=== PATIENT | male | born 1975 | race Caucasian/White ===

== ENCOUNTER 2018-08-01 08:49 | Emergency (ER) | payer OTHER ==
[~2018-08-01] VITALS: Ht 175.3 cm; Wt 83.5 kg
[2018-08-01] MEDS ORDERED: IV NORMAL SALINE 1,000ML 1,000 ML IV SCH (09:40)
--- NOTE | 2018-08-01 09:50 | PHYS DOC ---
Past History Past Medical History: GERD Past Surgical History: Other Smoking: Non-smoker Alcohol Use: Rarely Drug Use: None Adult General Chief Complaint Chief Complaint: FLU SYMPTOM HPI HPI Patient is a 43 year old male who presents with complaining of flulike symptom. Patient complaining of cough and congestion for the last 2 weeks with productive yellow sputum and generalized body ache that getting worse for the last 3 days with fever up to 101, headache, generalized nausea and she'll and weakness. Patient denies sick contact, smoking, history of pneumonia. Patient states he took [id number] cough medication without improvement of his condition. Review of Systems Review of Systems Constitutional: Reports fever Eyes: Denies change in visual acuity, redness, or eye pain [] HENT: Reports nasal congestion and sore throat Respiratory: Reports productive cough and shortness of breath Cardiovascular: No additional information not addressed in HPI [] GI: Denies abdominal pain, vomiting, bloody stools or diarrhea, reports nausea [] : Denies dysuria or hematuria [] Musculoskeletal: Denies back pain or joint pain [] Integument: Denies rash or skin lesions [] Neurologic: Reports headache, denies focal weakness or sensory changes [] Endocrine: Denies polyuria or polydipsia [] All other systems were reviewed and found to be within normal limits, except as documented in this note. Allergies Allergies Allergies Coded Allergies Type Severity Reaction Last Updated Verified No Known Drug Allergies 01/12/15 No Physical Exam Physical Exam Constitutional: Well developed, well nourished, mild acute distress, non-toxic appearance. [] HENT: Normocephalic, atraumatic, bilateral external ears normal, oropharynx moist, pharyngeal erythema, no oral exudates, nose normal. [] Eyes: PERRLA, EOMI, conjunctiva normal, no discharge. [] Neck: Normal range of motion, no tenderness, supple, no stridor. [] Cardiovascular:Heart rate regular rhythm, no murmur [] Lungs & Thorax: Bilateral breath sounds clear to auscultation [] Abdomen: Bowel sounds normal, soft, no tenderness, no masses, no pulsatile masses. [] Skin: Warm, dry, no erythema, no rash. [] Back: No tenderness, no CVA tenderness. [] Extremities: No tenderness, no cyanosis, no clubbing, ROM intact, no edema. [] Neurologic: Alert and oriented X 3, normal motor function, normal sensory function, no focal deficits noted. [] Psychologic: Affect normal, judgement normal, mood normal. [] Current Patient Data Vital Signs Vital Signs Date Time Temp Pulse Resp B/P (MAP) Pulse Ox O2 Delivery O2 Flow Rate FiO2 08/01/18 09:01 100.7 94 Room Air EKG EKG [] Radiology/Procedures Radiology/[place] [address] IMAGING REPORT Signed PATIENT: MIGUEL ROAJS ACCOUNT: [id number] : 1975 LOCATION: ER AGE: 43 SEX: M EXAM STATUS: REG ER ORD. PHYSICIAN: RASHEEDA SHELL MD REASON: cough and shortness of breath PROCEDURE: CHEST PA & LATERAL PROCEDURE: CHEST PA LATERAL CLINICAL INDICATION: Cough and shortness of breath COMPARISON: None FINDINGS: No pneumothorax identified. Cardiac and mediastinal contours unremarkable. No pulmonary consolidation or acute airspace disease. No acute osseous abnormalities identified. IMPRESSION: No pulmonary consolidation or acute airspace disease. Electronically signed by: Roberto Carlos Velasquez DO (08/01/2018 10:21 AM) [facility] DICTATED AND SIGNED BY: ROBERTO CARLOS VELASQUEZ DO DATE: 08/01/18 1021 CC: RASHEEDA SHELL MD; PCP,POPPY ~ Course & Med Decision Making Course & Med Decision Making Pertinent Labs and Imaging studies reviewed. (See chart for details) Evolution of patient in ER showed 43-year-old patient with complaining of cough and congestion for 2 weeks that getting worse for the last 3 days with starting fever. Patient had negative flu test and chest x-ray. Labs showed mild cytosis. Patient stated with IV fluid, Toradol, Solu-Medrol, DuoNeb, Rocephin and morphine and felt better. Plan discharge patient home with diagnose of bronchitis. Dragon Disclaimer Dragon Disclaimer This electronic medical record was generated, in whole or in part, using a voice recognition dictation system. Departure Departure: Impression: Primary Impression: Acute bronchitis Additional Impressions: Headache Myalgia Disposition: HOME, SELF-CARE (@1200) Condition: IMPROVED Referrals: PCP,NO (PCP) Patient Instructions: Acute Bronchitis, General Headache Without Cause Additional Instructions: Drink plenty of liquids Follow-up with your primary care physician in 3-5 days Return to ER if not getting better Scripts Azithromycin (ZITHROMAX) 250 Mg Tablet 1 PKG PO UD for infection, #1 PKG Prov: RASHEEDA SHELL MD 08/01/18 Hydrocodone/Chlorphen P-Stirex (Tussionex Pennkinetic Susp) 115 Ml Kandy.er.12h 5 ML PO BID for cough and congestion, #120 ML Prov: RASHEEDA SHELL MD 08/01/18 Albuterol Sulfate (PROAIR HFA INHALER) 8.5 Gm Hfa.aer.ad 2 PUFF INH PRN Q6HRS PRN for SHORTNESS OF BREATH, #1 INHALER 0 Refills Prov: RASHEEDA SHELL MD 08/01/18 Methylprednisolone (MEDROL) 4 Mg Tab.ds.pk 1 PKG PO UD for inflammation, #1 PKG Prov: RASHEEDA SHELL MD 08/01/18 Problem Qualifiers RASHEEDA SHELL MD Aug 01, 2018 09:50
[2018-08-01 09:59] LABS: INFLUENZA A PATIENT NEGATIVE (NEGATIVE); INFLUENZA B PATIENT NEGATIVE (NEGATIVE)
[2018-08-01] MEDS ORDERED: IPRATRPIUM/ALBUTEROL 0.5/2.5MG 3 ML NEBU. NEB ONE (10:00)
[2018-08-01] MEDS ORDERED: methylPREDNISolone SOD SUCC PF 125 MG/2 ML VIAL. IV ONE (10:00)
[2018-08-01] MEDS ORDERED: ONDANSETRON PF 4 MG/2 ML VIAL. IV ONE (10:00)
[2018-08-01 10:03] LABS: BASO % 0 % (0-3); EOS # 0.4 x10^3/uL (0.0-0.7); EOS % 3 % (0-3); HEMATOCRIT 49.7 % (39.0-53.0); HEMOGLOBIN 16.7 g/dL (13.0-17.5); LYMPH % 15 % (24-48); MEAN CORPUSCULAR HEMOGLOBIN 30 pg (25-35); MEAN CORPUSCULAR HGB CONC 34 g/dL (31-37); MEAN CORPUSCULAR VOLUME 89 fL (79-100); MONO # 1.4 x10^3/uL (0.0-1.1); MONO % 11 % (0-9); NEUT # 9.5 x10^3uL (1.8-7.7); NEUT % 71 % (31-73); PLATELET COUNT 248 x10^3/uL (140-400); RED CELL DISTRIBUTION WIDTH 13.4 % (11.5-14.5); WHITE BLOOD COUNT 13.3 x10^3/uL (4.0-11.0)
[2018-08-01 10:18] LABS: ALBUMIN 3.8 g/dL (3.4-5.0); ALBUMIN/GLOBULIN RATIO 0.9 (1.0-1.7); CALCIUM 9.1 mg/dL (8.5-10.1); GFR 80.8; TOTAL BILIRUBIN 0.6 mg/dL (0.2-1.0); TOTAL PROTEIN 8.2 g/dL (6.4-8.2)
--- NOTE | 2018-08-01 10:26 | RAD ---
PROCEDURE: CHEST PA LATERAL CLINICAL INDICATION: Cough and shortness of breath COMPARISON: None FINDINGS: No pneumothorax identified. Cardiac and mediastinal contours unremarkable. No pulmonary consolidation or acute airspace disease. No acute osseous abnormalities identified. IMPRESSION: No pulmonary consolidation or acute airspace disease. Electronically signed by: Roberto Carlos Monte DO (08/01/2018 10:21 AM) [facility]
[2018-08-01 10:44] LABS: % BANDS 5 % (0-9); % LYMPHS 20 % (24-48); % MONOS 9 % (0-10); % SEGS 65 % (35-66)
[2018-08-01 10:45] LABS: % BASOS 0 % (0-3); % EOS 1 % (0-5); PLT ESTIMATE ADEQUATE (ADEQUATE); TOXIC VACUOLATION MOD
[2018-08-01] MEDS ORDERED: MORPHINE SULFATE 4 MG/ML DISP.SYRIN. IV ONE (11:30)
[2018-08-01] MEDS ORDERED: HYDR115S2 PO (11:46)
[2018-08-01] MEDS ORDERED: AZIT250T PO (11:46)
[2018-08-01] MEDS ORDERED: ALBU2.5V8 INH (11:46)
[2018-08-01] MEDS ORDERED: METH4TAB2 PO (11:46)
[2018-08-01] MEDS ORDERED: IV NORMAL SALINE 50ML 50 ML ONE (11:47)
[2018-08-01] MEDS ORDERED: cefTRIAXone SODIUM 1 GM VIAL ONE (11:48)
[2018-08-01 12:15] VITALS: BP 121/87
== END 2018-08-01 12:35 | disposition home or self-care (01) ==
LOC: ER 08:49
DX: J40 Bronchitis, not specified as acute or chronic (principal); R51 Headache; M79.10 Myalgia, unspecified site
CPT/HCPCS: 36415; 71046; 80053; 83605; 85007; 85025; 87804; 94640; 96365; 96375; 99284; J0696; J2270; J2405; J2930; J7620; 96361; J7030

== ENCOUNTER 2019-01-14 06:27 | Emergency (ER) | payer OTHER ==
[~2019-01-14] VITALS: Ht 175.3 cm; Wt 83.9 kg
[~2019-01-14 06:27] MED LIST: ALBU2.5V8 INH; AZIT250T PO; HYDR115S2 PO; METH4TAB2 PO
--- NOTE | 2019-01-14 06:58 | PHYS DOC ---
Past History Past Medical History: GERD Past Surgical History: Other Smoking: Non-smoker Alcohol Use: None Drug Use: None Adult General Chief Complaint Chief Complaint: MECHANICAL FALL HPI HPI 43-year-old male presents with left rib pain. 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 He landed with his on his left ribs against the prisoner as they hit the ground. He had immediate discomfort in his left lower ribs in the anterior. This happened around 11:30 last night. Throughout the night, the patient has had discomfort especially with deep breathing. He wants to make sure he does not have any fractured ribs. He denies any other injuries or complaints. He does not have shortness of breath, just pain with breathing. Review of Systems Review of Systems Constitutional: Denies fever or chills [] Eyes: Denies change in visual acuity, redness, or eye pain [] HENT: Denies nasal congestion or sore throat [] Respiratory: Denies cough or shortness of breath [] Cardiovascular: No additional information not addressed in HPI [] GI: Denies abdominal pain, nausea, vomiting, bloody stools or diarrhea [] : Denies dysuria or hematuria [] Musculoskeletal: Left anterior lower rib pain[] Integument: Denies rash or skin lesions [] Neurologic: Denies headache, focal weakness or sensory changes [] Endocrine: Denies polyuria or polydipsia [] All other systems were reviewed and found to be within normal limits, except as documented in this note. Allergies Allergies Allergies Coded Allergies Type Severity Reaction Last Updated Verified No Known Drug Allergies 01/12/15 No Physical Exam Physical Exam Constitutional: Well developed, well nourished, no acute distress, non-toxic appearance. [] HENT: Normocephalic, atraumatic, bilateral external ears normal, oropharynx moist, no oral exudates, nose normal. [] Eyes: PERRLA, EOMI, conjunctiva normal, no discharge. [] Neck: Normal range of motion, no tenderness, supple, no stridor. [] Cardiovascular:Heart rate regular rhythm, no murmur [] Lungs & Thorax: Bilateral breath sounds clear to auscultation. Tenderness over her left, lower, anterior ribs. No ecchymosis or obvious deformity. [] Abdomen: Bowel sounds normal, soft, no tenderness, no masses, no pulsatile masses. [] Skin: Warm, dry, no erythema, no rash. [] Back: No tenderness, no CVA tenderness. [] Extremities: No tenderness, no cyanosis, no clubbing, ROM intact, no edema. [] Neurologic: Alert and oriented X 3, normal motor function, normal sensory function, no focal deficits noted. [] Psychologic: Affect normal, judgement normal, mood normal. [] Current Patient Data Vital Signs Vital Signs Date Time Temp Pulse Resp B/P (MAP) Pulse Ox O2 Delivery O2 Flow Rate FiO2 01/14/19 06:28 98.0 69 18 97 Room Air EKG EKG [] Radiology/Procedures Radiology/Procedures [] Impressions: Exam:Left ribs with PA chest Date: 01/14/2019 6:45 AM Comparison: No prior Indication: Fall, left rib pain Findings/ Impression: The heart is not enlarged. Mediastinal and hilar contours are normal. No focal parenchymal airspace opacity. No pleural effusion or pneumothorax. AP, Oblique and Spot images of the left ribs are negative for acute displaced rib fracture. Negative focal pleural elevation. Symmetrical intercostal spacing. It is of note that an acute non-displaced rib fracture can be in-apparent on initial post-trauma imaging. Electronically signed by: Kobe Perez MD (01/14/2019 7:44 AM) [facility] DICTATED AND SIGNED BY: KOBE PEREZ MD DATE: 01/14/19 0744 CC: ROSALEE ART DO; PCP,NO ~ Course & Med Decision Making Course & Med Decision Making Pertinent Labs and Imaging studies reviewed. (See chart for details) The patient does not have a rib fracture. This is likely just a contusion. If he continues to have significant symptoms, he could repeat the x-rays in 1-2 weeks. The patient is stable for discharge at this time. We'll give him a short course of [place] 5/325 especially to help him sleep with the pain. [] Dragon Disclaimer Dragon Disclaimer This electronic medical record was generated, in whole or in part, using a voice recognition dictation system. Departure Departure: Impression: Primary Impression: Contusion of rib on left side Disposition: 01 HOME, SELF-CARE Condition: STABLE Referrals: PCP,NO (PCP) Patient Instructions: Rib Contusion Scripts Hydrocodone Bit/Acetaminophen ([place] 5-325 TABLET) 1 Each Tablet 1 TAB PO PRN Q6HRS PRN for PAIN, #10 TAB 0 Refills Prov: ROSALEE ART DO 01/14/19 Problem Qualifiers Primary Impression: Contusion of rib on left side Encounter type: initial encounter Qualified Codes: S20.212A - Contusion of left front wall of thorax, initial encounter ROSALEE ART DO Jan 14, 2019 06:58
--- NOTE | 2019-01-14 07:47 | RAD ---
Exam:Left ribs with PA chest Date: 01/14/2019 6:45 AM Comparison: No prior Indication: Fall, left rib pain Findings/ Impression: The heart is not enlarged. Mediastinal and hilar contours are normal. No focal parenchymal airspace opacity. No pleural effusion or pneumothorax. AP, Oblique and Spot images of the left ribs are negative for acute displaced rib fracture. Negative focal pleural elevation. Symmetrical intercostal spacing. It is of note that an acute non-displaced rib fracture can be in-apparent on initial post-trauma imaging. Electronically signed by: Kobe Perez MD (01/14/2019 7:44 AM) [facility]
[2019-01-14] MEDS ORDERED: HYDR-3165 PO (07:52)
[2019-01-14 07:55] VITALS: BP 148/80
== END 2019-01-14 07:55 | disposition home or self-care (01) ==
LOC: ER 06:27
DX: S20.212A Contusion of left front wall of thorax, initial encounter (principal); K21.9 Gastro-esophageal reflux disease without esophagitis; W18.39XA Other fall on same level, initial encounter; Y93.72 Activity, wrestling; Y92.89 Other specified places as the place of occurrence of the external cause; Y99.0 Civilian activity done for income or pay
CPT/HCPCS: 71101; 99284

== ENCOUNTER 2019-01-18 21:29 | Emergency (ER) | payer OTHER ==
[~2019-01-18] VITALS: Ht 175.3 cm; Wt 83.9 kg
[~2019-01-18 21:29] MED LIST changes: +HYDR-3165 PO
--- NOTE | 2019-01-18 21:59 | EKG ---
[address] [address] Test Date: 2019-01-18 Test Time: 21:49:33 Pat Name: MIGUEL ROJAS Department: Room: Gender: M Traveling Buyer: : 1975 Requested By: MISSAEL CHRISTENSEN Order Number: [id number] Reading MD: Measurements Intervals [place] Rate: 71 P: 31 AK: 168 QRS: -17 QRSD: 96 T: 19 QT: 392 QTc: 431 Interpretive Statements SINUS RHYTHM LEFTWARD AXIS S1,S2,S3 PATTERN NO SPECIFIC ECG ABNORMALITIES RI6.01 No previous ECG available for comparison
[2019-01-18] MEDS ORDERED: KETOROLAC 15 MG/ML VIAL. IV ONE (22:00)
[2019-01-18] MEDS ORDERED: MORPHINE SULFATE 4 MG/ML DISP.SYRIN. IV/SQ PRN (22:00)
--- NOTE | 2019-01-18 22:01 | PHYS DOC ---
Past History Past Medical History: No Pertinent History, GERD Past Surgical History: Other Smoking: Non-smoker Alcohol Use: None Drug Use: None Adult General Chief Complaint Chief Complaint: RIB PAIN HPI HPI Patient is a 43-year-old male presents complaining of left-sided chest discomfort. 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 Increased pain this evening. [place] like something shifted or popped. Increased pain with deep breaths. No lower extremity swelling. No fracture was noted previously. No coughing or fever. No relief with home medicines. Patient is out of his narcotic pain medicines of which he was prescribed 10. He is scheduled for follow-up with Worker's Compensation next week.[] Review of Systems Review of Systems Constitutional: Denies fever or chills [] Eyes: Denies change in visual acuity, redness, or eye pain [] HENT: Denies nasal congestion or sore throat [] Respiratory: Denies cough or shortness of breath [] Cardiovascular: No additional information not addressed in HPI [] GI: Denies abdominal pain, nausea, vomiting, bloody stools or diarrhea [] : Denies dysuria or hematuria [] Musculoskeletal: Denies back pain or joint pain [] Integument: Denies rash or skin lesions [] Neurologic: Denies headache, focal weakness or sensory changes [] Endocrine: Denies polyuria or polydipsia [] All other systems were reviewed and found to be within normal limits, except as documented in this note. Current Medications Current Medications Current Medications Medications (Trade) Dose Ordered Sig/Gonzalo Start Time Stop Time Status Last Admin Dose Admin Ketorolac Tromethamine (Toradol 15mg Vial) 15 mg 1X ONCE 01/18/19 22:00 01/18/19 22:01 UNV Morphine Sulfate (Morphine 4mg Syringe) 4 mg PRN Q15MIN PRN 01/18/19 22:00 01/19/19 21:59 UNV Allergies Allergies Allergies Coded Allergies Type Severity Reaction Last Updated Verified No Known Drug Allergies 01/12/15 No Physical Exam Physical Exam Constitutional: Well developed, well nourished, mild to moderate discomfort, non-toxic appearance. [] HENT: Normocephalic, atraumatic, bilateral external ears normal, oropharynx moist, no oral exudates, nose normal. [] Eyes: PERRLA, EOMI, conjunctiva normal, no discharge. [] Neck: Normal range of motion, no tenderness, supple, no stridor. [] Cardiovascular:Heart rate regular rhythm, no murmur [] Lungs & Thorax: Bilateral breath sounds clear to auscultation, tenderness to palpation left sixth rib region. There is no crepitus. No bruising. No subcutaneous emphysema. No flail segment is noted. [] Abdomen: Bowel sounds normal, soft, no tenderness, no masses, no pulsatile masses. [] Skin: Warm, dry, no erythema, no rash. [] Back: No tenderness, no CVA tenderness. [] Extremities: No tenderness, no cyanosis, no clubbing, ROM intact, no edema. [] Neurologic: Alert and oriented X 3, normal motor function, normal sensory function, no focal deficits noted. [] Psychologic: Affect normal, judgement normal, mood normal. [] Current Patient Data Vital Signs Vital Signs Date Time Temp Pulse Resp B/P (MAP) Pulse Ox O2 Delivery O2 Flow Rate FiO2 01/18/19 21:41 97.4 86 20 97 Room Air EKG EKG EKG shows a sinus rhythm at 71 bpm, left axis, QTC 431 ms, no ST elevations. Interpreted by me at 2149[] Radiology/Procedures Radiology/Procedures PROCEDURE: CHEST PA & LATERAL Exam: Chest 2 views INDICATION: Severe left-sided chest pain TECHNIQUE: Frontal and lateral views of the chest Comparisons: None FINDINGS: The cardiomediastinal silhouette and pulmonary vessels are within normal limits. The lung and pleural spaces are clear. IMPRESSION: No acute cardiopulmonary process.[] Course & Med Decision Making Course & Med Decision Making Pertinent Labs and Imaging studies reviewed. (See chart for details) ED course: Patient arrived, was placed in bed, and tolerated exam well. He was transported to and from radiology with any complications. He received good pain management with the medicine given. After the return of lab and imaging studies, these were discussed with the patient and family who voiced understanding. All questions were answered. He was discharged in improved condition. Medical decision making: There is no evidence of pneumonia, pneumothorax, pulmonary embolism, dissecting thoracic aneurysm, hemothorax, nor esophageal rupture. No evidence of this being an acute coronary syndrome. Patient's heart score is 1 for age.[] Dragon Disclaimer Dragon Disclaimer This electronic medical record was generated, in whole or in part, using a voice recognition dictation system. Departure Departure: Impression: Primary Impression: Rib injury Disposition: 01 HOME, SELF-CARE Condition: IMPROVED Referrals: PCPPOPPY (PCP) Patient Instructions: Rib Contusion Additional Instructions: Follow-up with your Worker's Compensation physician in 2 days. Take medication as prescribed. Return to the ER if worsening discomfort, difficulty breathing, or any other concerns. Scripts Tramadol Hcl (TRAMADOL HCL) 50 Mg Tablet 50 MG PO PRN Q6HRS PRN for PAIN, #20 TAB Prov: MISSAEL CHRISTENSEN DO 01/18/19 Meloxicam (MELOXICAM) 7.5 Mg Tablet 7.5 MG PO DAILY for PAIN, #20 TAB Prov: MISSAEL CHRISTENSEN DO 01/18/19 MISSAEL CHRISTENSEN DO Jan 18, 2019 22:01
--- NOTE | 2019-01-18 22:18 | RAD ---
Exam: Chest 2 views INDICATION: Severe left-sided chest pain TECHNIQUE: Frontal and lateral views of the chest Comparisons: None FINDINGS: The cardiomediastinal silhouette and pulmonary vessels are within normal limits. The lung and pleural spaces are clear. IMPRESSION: No acute cardiopulmonary process. Electronically signed by: Foreign Roberson MD (01/18/2019 10:15 PM) [facility]
[2019-01-18 22:44] LABS: BASO # 0.1 x10^3/uL (0.0-0.2); BASO % 1 % (0-3); EOS # 0.1 x10^3/uL (0.0-0.7); EOS % 2 % (0-3); HEMATOCRIT 46.3 % (39.0-53.0); HEMOGLOBIN 15.9 g/dL (13.0-17.5); LYMPH # 3.3 x10^3/uL (1.0-4.8); LYMPH % 44 % (24-48); MEAN CORPUSCULAR HEMOGLOBIN 30 pg (25-35); MEAN CORPUSCULAR HGB CONC 34 g/dL (31-37); MEAN CORPUSCULAR VOLUME 88 fL (79-100); MONO # 0.6 x10^3/uL (0.0-1.1); MONO % 8 % (0-9); NEUT # 3.4 x10^3uL (1.8-7.7); NEUT % 45 % (31-73); PLATELET COUNT 298 x10^3/uL (140-400); RED BLOOD COUNT 5.26 x10^6/uL (4.30-5.70); WHITE BLOOD COUNT 7.6 x10^3/uL (4.0-11.0)
[2019-01-18 23:06] LABS: ALBUMIN 3.7 g/dL (3.4-5.0); ALBUMIN/GLOBULIN RATIO 1.1 (1.0-1.7); CALCIUM 9.2 mg/dL (8.5-10.1); CREATININE 1.1 mg/dL (0.7-1.3); GFR 72.4; POTASSIUM 3.7 mmol/L (3.5-5.1); TOTAL BILIRUBIN 0.4 mg/dL (0.2-1.0); TOTAL PROTEIN 7.2 g/dL (6.4-8.2)
[2019-01-18] MEDS ORDERED: TRAM50TA PO (23:19)
[2019-01-18] MEDS ORDERED: MELO7.5T29 PO (23:19)
[2019-01-18 23:22] VITALS: BP 118/71
== END 2019-01-18 23:31 | disposition home or self-care (01) ==
LOC: ER 21:29
DX: S29.9XXA Unspecified injury of thorax, initial encounter (principal); K21.9 Gastro-esophageal reflux disease without esophagitis; X50.9XXA Other and unspecified overexertion or strenuous movements or postures, initial encounter; Y93.89 Activity, other specified; Y92.89 Other specified places as the place of occurrence of the external cause; Y99.0 Civilian activity done for income or pay
CPT/HCPCS: 36415; 71046; 80053; 83690; 83880; 84484; 85025; 85379; 93005; 96374; 96375; 99285; J1885; J2270

== ENCOUNTER → 2020-05-10 | Outpatient (CLI) | payer OTHER ==
[~2020-05-10] MED LIST changes: +MELO7.5T29 PO; +TRAM50TA PO
== END ==
LOC: LAB 09:38
DX: R50.9 Fever, unspecified (principal); Z20.828 Contact with and (suspected) exposure to other viral communicable diseases
CPT/HCPCS: U0003

== ENCOUNTER 2021-11-16 17:22 | Emergency (ER) | payer SELFPAY ==
[~2021-11-16] VITALS: Ht 175.3 cm; Wt 81.2 kg
--- NOTE | 2021-11-16 17:50 | PHYS DOC ---
Past History Past Medical History: No Pertinent History, GERD (KYLEE ACOSTA APRN) Past Surgical History: Other (KYLEE ACOSTA APRN) Smoking: Non-smoker Alcohol Use: None Drug Use: None (KYLEE ACOSTA APRN) Adult General Chief Complaint Chief Complaint: ANIMAL BITE HPI HPI Patient is a 38-year-old male patient who presents with multiple dog bites. He reports his 2 dogs at home were fighting each other, he had tried to break them up, when they had bit at him. He reports labs occurred just prior to coming to the emergency room. He reports he does not know when his last tetanus shot was, reports this is most likely been more than 5 years ago. He states his dogs are up-to-date on their rabies vaccinations. He states they did not clench down and bite, he reports everything was just scrapes from their teeth (KYLEE ACOSTA APRN) Review of Systems Review of Systems Constitutional: Denies fever or chills [] Musculoskeletal: Denies back pain or joint pain [] Integument: Denies rash [] reports multiple skin lesions due to Neurologic: Denies headache, focal weakness or sensory changes [] All other systems were reviewed and found to be within normal limits, except as documented in this note. (KYLEE ACOSTA APRN) Allergies Allergies Allergies Coded Allergies Type Severity Reaction Last Updated Verified No Known Drug Allergies 01/12/15 No (KYLEE ACOSTA APRN) Physical Exam Physical Exam Constitutional: Well developed, well nourished, no acute distress, non-toxic appearance. [] HENT: Normocephalic, atraumatic, bilateral external ears normal, oropharynx moist, no oral exudates, nose normal. [] Eyes: PERRLA, EOMI, conjunctiva normal, no discharge. [] Neck: Normal range of motion, no tenderness, supple, no stridor. [] Cardiovascular:Heart rate regular rhythm, no murmur [] Lungs & Thorax: Bilateral breath sounds clear to auscultation [] Abdomen: Bowel sounds normal, soft, no tenderness, no masses, no pulsatile masses. [] Skin: Warm, dry, no erythema, no rash. [] Left hand approximately 2.5 cm laceration to posterior aspect of hand. Left anterior wrist, overlying radius, approximately 8 mm laceration. Multiple small scratches to left hand. Right hand noted approximally 3 cm laceration to posterior right-hand noted.. Numerous smaller scrapes and abrasions to right hand noted. Right foot noting several <1 cm shallow lacerations to foot. Larger 2 cm laceration to right lateral ankle. 1 cm laceration to medial foot. 3 cm laceration to heel near achilles insertion. Back: No tenderness, no CVA tenderness. [] Extremities: No tenderness, no cyanosis, no clubbing, ROM intact, no edema. [] Full range of motion to extremities. Neurologic: Alert and oriented X 3, normal motor function, normal sensory function, no focal deficits noted. [] Psychologic: Affect normal, judgement normal, mood normal. [] (KYLEE ACOSTA APRN) EKG EKG [] (KYLEE ACOSTA APRN) Radiology/Procedures Radiology/Procedures [] Impressions: XR LT WRIST 3VIEWS History: Reason: injury / Spl. Instructions: / History: Pain Technique: 3 views left wrist. Comparison: None. Findings: Irregularity of the mid scaphoid. No dislocation. Dorsal tilt of the lunate. Mild metacarpal degenerative changes. Impression: 1. Irregularity of the mid scaphoid, may relate to prior fracture. Recommend correlation with point tenderness to evaluate acuity. Scaphoid view can further assess if clinically indicated. 2. Dorsal tilt of the lunate, may indicate ligamentous injury. Electronically signed by: Flaco Benson DO (11/16/2021 8:21 PM) [facility] (KYLEE ACOSTA APRN) Heart Score C/O Chest Pain: N/A Risk Factors: Risk Factors: DM, Current or recent (<one month) smoker, HTN, HLP, family history of CAD, obesity. Risk Scores: Risk Factors: DM, Current or recent (<one month) smoker, HTN, HLP, family history of CAD, obesity. (KYLEE ACOSTA APRN) Course & Med Decision Making Course & Med Decision Making Pertinent Labs and Imaging studies reviewed. (See chart for details) [] Patient presenting following dog bites, they were his own dogs which he had broken up as the dogs were fighting with each other. He reports he does not k now his last tetanus shot was. He reports his dogs are up-to-date. Reports none of the dogs had a clenching bite, most of which is scratches and cuts from the dog's teeth. States episode occurred just prior to coming in. Augmentin started. Wounds cleansed. And will suture wounds. At start of suturing, patient reports some discomfort in his left wrist, he had not been complaining of this previously. Will image at this time. Imaging results noting possible scaphoid abnormalitiy of unknown age. Patient without tenderness over scaphoid, discomfort isolated to distal ulnar aspect, no tenderness over scaphoid or wrist. No history of fall today, no history of other trauma today other than the dog bites. Consideration of lunate tilt and ligamentous injury, will recommend decreased use, follow up with PCP. No lesions or dog bites noted over area of lunate consistent with acute injury to area. Following suturing, wound is dressed, cleansed, and antibiotics given.. We will provide prescription for antibiotics. Tetanus updated at this time. wounds dressed with gauze, Antibiotic Ointment applied. will plan to discharge at this time. Patient understands plan of care (KYLEE ACOSTA APRN) Course & Med Decision Making Did not see or evaluate patient. I discussed patient with MARKETING REPORTING ANALYST. Generally agree with MARKETING REPORTING ANALYST's work-up and disposition per note (JANICE CHANDLER MD) Dragon Disclaimer Dragon Disclaimer This electronic medical record was generated, in whole or in part, using a voice recognition dictation system. (KYLEE ACOSTA APRN) Laceration Repair Lac Repair Indication: Lacerations - Left Hand posterior Procedure: The patient was placed in the appropriate position and anesthesia using 2 ml 1% lidocaine without Epi was performed. The area was then Cleansed with sterile water and scrubbing. The laceration was closed using (2) 4/0 Ethilon Simple Interrupted Sutures The wound area was then dressed with Gauze]. Total repaired wound length: 2.5 cm Indication: Lacerations - Left wrist Procedure: The patient was placed in the appropriate position and anesthesia using 2 ml 1% lidocaine without Epi was performed. The area was then Cleansed with sterile water and scrubbing. The laceration was closed using (1) 4/0 Ethilon Simple Interrupted Sutures The wound area was then dressed with Gauze]. Total repaired wound length: 1 cm Indication: Lacerations - Right hand- Posterior Procedure: The patient was placed in the appropriate position and anesthesia using 2 ml 1% lidocaine without Epi was performed. The area was then Cleansed with sterile water and scrubbing. The laceration was closed using (2) 4/0 Ethilon Simple Interrupted Sutures The wound area was then dressed with [Gauze. Total repaired wound length: 3 cm Indication: Lacerations - 3rd digit right hand, posterior Procedure: The patient was placed in the appropriate position and anesthesia using 4 ml 1% lidocaine without Epi Digital BLock was performed. The area was then Cleansed with sterile water and scrubbing. The laceration was closed using (2) 4/0 Ethilon Simple Interrupted Sutures The wound area was then dressed with Gauze]. Total repaired wound length: 0.8 cm Indication: Lacerations - 4th digit right hand, palmar Procedure: The patient was placed in the appropriate position and anesthesia using 4 ml 1% lidocaine without Epi Digital BLock was performed. The area was then Cleansed with sterile water and scrubbing. The laceration was closed using (1) 4/0 Ethilon Simple Interrupted Sutures The wound area was then dressed with Gauze]. Total repaired wound length: 0.8 cm Indication: Lacerations - right foot - lateral Procedure: The patient was placed in the appropriate position and anesthesia using 3 ml 1% lidocaine without Epi The area was then Cleansed with sterile water and scrubbing. The laceration was closed using (4) 4/0 Ethilon Simple Interrupted Sutures The wound area was then dressed with Gauze]. Total repaired wound length: 2.2 cm Indication: Lacerations - right foot - Medial Procedure: The patient was placed in the appropriate position and anesthesia using 3 ml 1% lidocaine without Epi The area was then Cleansed with sterile water and scrubbing. The laceration was closed using (4) 4/0 Ethilon Simple Interrupted Sutures The wound area was then dressed with Gauze]. Total repaired wound length: 1.6 cm Indication: Lacerations - right foot - Heel Procedure: The patient was placed in the appropriate position and anesthesia using 3 ml 1% lidocaine without Epi The area was then Cleansed with sterile water and scrubbing. The laceration was closed using (4) 4/0 Ethilon Simple Interrupted Sutures The wound area was then dressed with Gauze]. Total repaired wound length: 2.5 cm . Other Items: [OTHER ITEMS] The patient tolerated the procedure [TOLERATED]. Complications: [COMPLICATIONS]. (KYLEE ACOSTA APRN) Departure Departure: Impression: Primary Impression: Dog bite of ankle Additional Impressions: Dog bite of hand Dog bite of hand without complication Wrist pain Disposition: 01 HOME / SELF CARE / HOMELESS Referrals: PCP,NO (PCP) Patient Instructions: Animal Bite, Sutured Wound Care, Wrist Pain Additional Instructions: Keep your stitches and smaller wounds covered for the next 2-3 days Take the antibitoics for the entire duration they are prescribed Return for suture removal in 10 days. You can do this here or with your primary care provider. Take Tylenol and/or ibuprofen as needed Apply ice over your left wrist. There was no acute fracture or deformity noted on your wrist imaging today Scripts Amoxicillin/Potassium Clav (AUGMENTIN 875-125 TABLET) 1 Each Tablet 1 TAB PO BID for dog bite for 10 Days, #20 TAB 0 Refills Prov: KYLEE ACOSTA APRN 11/16/21 Problem Qualifiers Primary Impression: Dog bite of ankle Encounter type: initial encounter Laterality: right Qualified Codes: S91.051A - Open bite, right ankle, initial encounter; W54.0XXA - Bitten by dog, initial encounter Additional Impressions: Dog bite of hand Encounter type: initial encounter Laterality: right Qualified Codes: S61.451A - Open bite of right hand, initial encounter; W54.0XXA - Bitten by dog, initial encounter Dog bite of hand without complication Encounter type: initial encounter Laterality: left Qualified Codes: S61.452A - Open bite of left hand, initial encounter; W54.0XXA - Bitten by dog, initial encounter Wrist pain Laterality: left Qualified Codes: M25.532 - Pain in left wrist KYLEE ACOSTA APRN November 16, 2021 17:50 JANICE CHANDLER MD November 16, 2021 22:49
[2021-11-16] MEDS ORDERED: DIPHTH,PERTUSS(ACELL),TET TOX 0.5 ML DISP.SYRIN. VAX IM ONE (18:30)
[2021-11-16] MEDS ORDERED: HYDROcodone/APAP 5/325MG 1 TAB TABLET ONE (19:08)
[2021-11-16] MEDS ORDERED: HYDROcodone/APAP 5/325MG 1 TAB TABLET PO ONE (19:30)
--- NOTE | 2021-11-16 20:23 | RAD ---
XR LT WRIST 3VIEWS History: Reason: injury / Spl. Instructions: / History: Pain Technique: 3 views left wrist. Comparison: None. Findings: Irregularity of the mid scaphoid. No dislocation. Dorsal tilt of the lunate. Mild metacarpal degenera tive changes. Impression: 1. Irregularity of the mid scaphoid, may relate to prior fracture. Recommend correlation with point tenderness to evaluate acuity. Scaphoid view can further assess if clinically indicated. 2. Dorsal tilt of the lunate, may indicate ligamentous injury. Electronically signed by: Flaco Benson DO (11/16/2021 8:21 PM) [facility]
[2021-11-16] MEDS ORDERED: AMOXICILLIN/K CLAV 875/125MG TABLET. PO ONE (20:30)
[2021-11-16] MEDS ORDERED: AMOX1TAB61 PO (20:32)
[2021-11-16] MEDS ORDERED: KETOROLAC 30 MG/ML VIAL. IM ONE (20:45)
[2021-11-16] MEDS ORDERED: MUPIROCIN 2% TOPICAL OINTMENT 22GM TUBE. TP ONE (21:26)
[2021-11-16 21:30] VITALS: BP 128/80
== END 2021-11-16 21:43 | disposition home or self-care (01) ==
LOC: ER 17:22
DX: S61.412A Laceration without foreign body of left hand, initial encounter (principal); S61.411A Laceration without foreign body of right hand, initial encounter; S91.011A Laceration without foreign body, right ankle, initial encounter; S61.512A Laceration without foreign body of left wrist, initial encounter; S61.212A Laceration without foreign body of right middle finger without damage to nail, initial encounter; S91.311A Laceration without foreign body, right foot, initial encounter; S61.214A Laceration without foreign body of right ring finger without damage to nail, initial encounter; K21.9 Gastro-esophageal reflux disease without esophagitis; W54.0XXA Bitten by dog, initial encounter; Y93.89 Activity, other specified; Y92.89 Other specified places as the place of occurrence of the external cause; Y99.8 Other external cause status
CPT/HCPCS: 12005; 73110; 90471; 90715; 96372; 99284; J1885; 99283